=== PATIENT | female | born 1985 | race Caucasian/White ===

== ENCOUNTER 2024-10-10 13:32 | Outpatient (CLI) | payer OTHER, SELFPAY | END 2024-10-10 13:33 | disposition home or self-care (01) | LOC: AMB 10-17 09:28 | PROVIDERS: Visit Provider Student in an Organized Health Care Education/Training Program | DX: S80.212A Abrasion, left knee, initial encounter (principal); V49.49XA Driver injured in collision with other motor vehicles in traffic accident, initial encounter; Y92.410 Unspecified street and highway as the place of occurrence of the external cause | CPT/HCPCS: A0998 ==

== ENCOUNTER 2024-10-10 16:02 | Emergency (ER) | payer OTHER, SELFPAY ==
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
--- OUTSIDE RECORDS SUMMARY | 2024-10-10 16:05 | XMS_ITS | Clinical Summary ---
Author Organization [facility] Address [address] [place] [id number] Care Team Providers Care Director Dental Services Name Role Phone Juliet Paula Primary Care Provider Allergies No known active allergies Medications Cholecalciferol , Vitamin D3, (VITAMIN D-3) 2,000 unit tablet Take 1 tablet by mouth once daily. 0 06/16/2013 Active fish oil-omega-3 fatty acids (FISH OIL) 1,200-360 mg cap Take 2 capsules by mouth once daily. 2 tablets by mouth once daily 0 02/22/2015 Active vitamin B complex (B COMPLEX-VITAMIN B12) tablet Take 1 tablet by mouth once daily. 0 02/22/2015 Active Active Problems Problem Noted Date Diagnosed Date Protein-calorie malnutrition, unspecified severi ty 11/22/2021 Pain of left middle finger 06/15/2017 Overview (06/15/2017): Was out in cold Was closing the door on a mail box and hurt hand and it was numb Then at work yesterday and jammed again then more with straightening Pulling to the palm Tried popsickle stick on the joint to hold straight 1.5 weeks WC injury around beatriz Supervision of other normal 06/17/2013 Overview (12/22/2013): contractions at 32 weeks - +FFN and shortened cervix - betamethasone x 2 Doses given Unplanned Rh negative. Will deliver with Dr Sam Its a girl! Yesenia HSV prophylaxis. GBS positive Tobacco use 12/15/2012 Seasonal allergies 11/13/2009 Dysthymic disorder 09/20/2009 Resolved Problems Problem Noted Date Diagnosed Date Resolved Date Rh negative status during 06/21/2008 11/13/2009 Immunizations Immunization Administration Dates Next Due Influenza, IIV3 (Age >=3 years) 03/27/2009,04/20 Tdap 10/24/2013,07/23/2010 Family History Medical History Relation Name Comments Coronary artery disease Father Diabetes Father Heart failure Father Other Father migraine Diabetes Mother type II Heart Disease Mother CHF Hypertension Mother Stroke Mother Arthritis Sister rheumatoid arth ritis Relation Name Status Comments Father Alive Mother Sister Social History Tobacco Use Types Packs/Day Years Used Date Smoking Tobacco: Every Day Cigarettes Smokeless Tobacco: Never Tobacco Cessation:Ready to Q uit: Not Asked; Counseling Given: Yes Alcohol Use Standard Drinks/Week Comments Yes 1 (1 standard drink = 0.6 oz pur e alcohol) occasional PHQ-2 Answer Date Recorded PHQ-2 TOTAL SCORE 1 03/11/2023 Social Connections Answer Date Recorded Frequency of Communication with Friends and Fami ly Not on file 11/23/2022 Financial Resource Strain Answer Date R ecorded Difficulty of Paying Living Expenses 3 11/22/2021 Difficulty of Paying Living Expenses Not on file 11/22/2021 Food Insecurity Answer Date Recorded Worried About Running Out of Food in the Last Ye ar 1 11/22/2021 Transportation Needs Answer Date Record ed Lack of Transportation (Medical) 1 11/22/2021 Housing Stability Answer Date Recorded Unable to Pay for Housing in the Last Year 1 11/22/2021 Comments No Sex and Gender Information Value Date Recorded Sex Assigned at Not on file 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 Gender Identity Not on file Sexual Orientation Not on file Occupation Industry Job Start Date Job End Date Not on file Not on file Not on file Not on file Obstetrics History Para Term AB IAB SAB Ectopic Multiple Livin g Live Births 5 5 5 5 Date Outcome GA Total Labor Labor/2nd/3rd Weight Sex Type Anes PTL Sheila A1 A5 Name Clin 2002 Term 39w 0d 8h 00m/ 2.66 kg (5 lb 14 oz) F Vag Shalonda midwif e Delivery Location:[place] 2005 Term 39w 0d 4h 00m/ 2.83 kg (6 lb 4 oz) F Vag [address] Friedm an Delivery Location:[facility] Comments: en dometritis, depression 2006 Term 39w 0d 4h 00m/ 3.57 kg (7 lb 14 oz) M Vag Francisco Lynch Delivery Location:[facility] 2008 Term 38w 6d 4h 00m/ 2.75 kg (6 lb 1 oz) F VAGINA L VACU 8 9 Delphine Sandra Delivery Location:[facility] 2013 Term 39w 6d Vag [place] [facility] Comments:System Genera leo. Please review and update details. Last Filed Vital Signs Vital Sign Reading Time Taken Comments Blood Pressure 142/79 03/11/2023 8:58 AM CDT Pulse 82 03/11/2023 8:58 AM CDT Temperature 36.7 C (98.1 F) 10/25/2018 11:52 AM CDT Respiratory Rate 12 07/14/2013 8:37 AM ELECTRIC PLATER Oxygen Saturation 100% 03/11/2023 8:58 AM CDT Inhaled Oxygen Concentration - - Weight 51.3 kg (113 lb) 03/11/2023 8:58 AM CDT Height 167.6 cm (5' 6) 03/11/2023 8:58 AM CDT Body Mass Index 18.24 03/11/2023 8:58 AM CDT Plan of Treatment Health Maintenance Due Date Last Done Comments Hepatitis C screening for ag e 18-79 2003 Pneumococcal series for age 6-49 (1 of 2 - PCV) 2004 Pap test for age 21-65 11/05/2020 8, 11/05/2017, 02/23/2014, Additional history exists Tetanus booster 10/25/2023 10/24/2013, 07/23/2010 COVID-19 vaccine series ( season) 2024 BMI (ht and wt on same day) for age 18+ 03/11/2024 03/11/2023, 11/22/2021, 03/12/2021, Additional history exists Depression screening for age 12+ 03/11/2024 03/11/2023, 12/23/2021, 12/18/2021, Additional history exists Influenza Vaccine (Season Ended) 2025 03/27/20 09, 04/20/2007 HIV for age 15-65 Completed 06/16/2013, , 06/20/2008, Additional history exists Tdap Completed 10/24/2013, 07/23/2010 Procedures Procedure Name Priority Date/Time Associated Diagnosis Comments LAMINATION ASSEMBLER THIN PREP PAP SCREEN IMAGED Routine 11/05/2017 12:00 PM CDT ANTI HIV 1/2 Routine 06/16/2013 4:18 PM ELECTRIC PLATER Supervision of other normal (HC) from Last 3 Months or Most Recently Relevant to Health Maintenance Results * LAMINATION ASSEMBLER THIN PREP PAP SCREEN IMAGED (11/05/2017 12:00 PM CDT) Case Report Gynecologic Cytology Report Case: [id number] Authorizing Provider: Leatha Wilkerson Collected: 11/05/2017 1200 MD Sherly First Screen: Jena Cho Received: 11/09/2017 1417 Specimen: LAMINATION ASSEMBLER ThinPrep Vial Screening, Cervical/Vaginal 11/13/2017 10:14 AM CDT [facility] INTERPRETATION/ RESULT NEGATIVE FOR INTRAEPITHELIAL LESION OR MALIGNANCY (NIL) (none) 11/13/2017 10:14 AM CDT [facility] at 1014 CDT SPECIMEN ADEQUACY Satisfactory for evaluation Endocervical component present 11/13/2017 10:14 AM CDT [facility] HPV REQUEST HPV and PAP 11/13/2017 10:14 AM CDT [facility] Date of LMP 10/26/2017 11/13/2017 10:14 AM CDT [facility] Last Pap Date 11/13/2017 10:14 AM CDT [facility] Comment:2008 Last Pap Result 8 10:14 AM CDT [facility] Comment:Leep? Automated Review Successful 11/13/2017 10:14 AM CDT [facility] Comment:Specimen processed s uccessfully by automated treasury associate device, ThinPrep Imaging System, [employer] ANCILLARY TESTING LAMINATION ASSEMBLER HPV Ordered, Please see separate report 11/13/2017 10:14 AM CDT [facility] Note The pap test is a screening technique, not a diagnostic procedure. It is used primarily to screen for squamous cancers and precursor lesions. Published studies have shown that it is subject to both false negative and false positive results. The pap test should not be used as the sole means to diagnose or exclude pre-malignant and malignant lesions. Cytology is screened and interpreted at [facility] - [address], [place] [address] and [facility] - [address]; [place] [address] and [facility] - [address]; [place] [address] and [facility] [address]; [place] [address] 11/13/2017 10:[address] [facility] Other (Cervical/Vagina l) 11/05/2017 12:00 PM CDT 11/09/2017 2:17 PM CDT us Leatha Wilkerson MD PATHOLOGY/CYTOLOGY Final Result [facility] [address] [place] [address], * ANTI HIV 1/2 (06/16/2013 4:18 PM ELECTRIC PLATER) ANTI HIV 1/2 Non-reacti ve [facility] Blood specimen (specimen) BLOOD SPECIMEN / Unknown 06/16/2013 4:18 PM ELECTRIC PLATER 06/16/2013 4:13 PM ELECTRIC PLATER us Pamella Flores MD SEND OUTS Final Result [facility] INTERNAL ZIP [address] [place] [address] from Last 3 Months or Most Recently Relevant to Health Maintenance Insurance [employer] [facility] [employer] [place] Care Teams Director Dental Services Relationship Specialty Start Date End Date Juliet Paula [facility] [address] [facility] [address] PCP - General Physician 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
[2024-10-10 16:07] VITALS: BP 120/80; PULSE 102; RESP 18; TEMP 37.5; O2SAT 98; BMI 18.7
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
[2024-10-10 16:47] LABS: Creatinine, Point-of-Care* 0.6 mg/dl (0.6-1.3)
[2024-10-10 18:01] VITALS: BP 116/72; PULSE 87; RESP 16; O2SAT 100
== END 2024-10-10 18:50 | disposition home or self-care (01) ==
PROVIDERS: Emergency Provider Family Medicine
DX: S16.1XXA Strain of muscle, fascia and tendon at neck level, initial encounter (principal); V43.52XA Car driver injured in collision with other type car in traffic accident, initial encounter; S32.314A Nondisplaced avulsion fracture of right ilium, initial encounter for closed fracture
CPT/HCPCS: 70450; 72125; 74177; 82565; 99284; Q9967

== ENCOUNTER 2025-01-23 07:01 | Outpatient (CLI) | payer OTHER, SELFPAY ==
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
== END 2025-01-23 07:02 | disposition home or self-care (01) ==
LOC: MRI 07:04
PROVIDERS: PCP Physician Assistant Medical; Visit Provider Family Medicine
DX: M50.223 Other cervical disc displacement at C6-C7 level (principal); M47.892 Other spondylosis, cervical region; Z02.6 Encounter for examination for insurance purposes
CPT/HCPCS: 72141

== ENCOUNTER 2025-03-23 10:00 | Outpatient (RCR) | payer OTHER, SELFPAY | END 2025-03-23 13:08 | disposition home or self-care (01) | PROVIDERS: PCP Physician Assistant Medical; Visit Provider Family Medicine | DX: S19.9XXD Unspecified injury of neck, subsequent encounter (principal); M54.2 Cervicalgia; Z02.6 Encounter for examination for insurance purposes; Z51.89 Encounter for other specified aftercare | CPT/HCPCS: 97110; 97140; 97162 ==